=== PATIENT | female | born 1950 | race Caucasian/White ===

== ENCOUNTER 2021-05-09 10:41 | Outpatient (CLI) | payer MEDICARE, OTHER ==
[2021-05-09 23:37] LABS: SARS-CoV-2 PCR by NAA Not Detected (NotDetected)
== END 2021-05-09 10:42 | disposition home or self-care (01) ==
LOC: CSHLAB 10:41
PROVIDERS: ATTEND Internal Medicine Pulmonary Disease
DX: Z20.822 Contact with and (suspected) exposure to COVID-19 (principal)
CPT/HCPCS: U0003; U0005

== ENCOUNTER 2021-05-12 09:06 | Day surgery (SDC) | payer MEDICARE, OTHER ==
[2021-05-09 14:12] VITALS: BMI 23.1
[~2021-05-12 09:06] MED LIST: Bupivacaine 0.25% HCL 30 ML VIAL ONE; Lidocaine 1% MPF 2 ML VIAL ONE
[2021-05-12] MEDS ORDERED: ceFAZolin 2 GM/Dextrose 50 ML IVPB ONE (09:23)
[2021-05-12] MEDS ORDERED: PROPOFOL 60 ML ONE (09:37)
[2021-05-12] MEDS ORDERED: Fentanyl 100 MCG/2 ML VIAL ONE (09:37)
[2021-05-12] MEDS ORDERED: Midazolam HCl 2 mg/2 ml Vial ONE (09:37)
[2021-05-12] MEDS ORDERED: diphenhydrAMINE 50 MG/ML VIAL ONE (09:58)
[2021-05-12] MEDS ORDERED: EPINEPHrine 1 MG/ML AMP ONE (10:18)
[2021-05-12] MEDS ORDERED: HYDROcodone/Acetaminophen 5/325 mg Tablet PO PRN (10:44)
[2021-05-12] MEDS ORDERED: Acetaminophen 325 MG TAB PO PRN (10:44)
== END 2021-05-12 11:45 | disposition home or self-care (01) ==
LOC: CSHSDC 09:06
PROVIDERS: ATTEND Surgery
PROC: 05HM33Z Insertion of Infusion Device into Right Internal Jugular Vein, Percutaneous Approach (ICD-10-PCS; principal; 2021-05-12)
DX: C34.11 Malignant neoplasm of upper lobe, right bronchus or lung (principal); F17.210 Nicotine dependence, cigarettes, uncomplicated; J43.9 Emphysema, unspecified
CPT/HCPCS: 36561; C1788; J0171; J0690; J1200; J1642; J2250; J2704; J3010; S0020